=== PATIENT | female | born 1985 | race Caucasian/White ===

== ENCOUNTER 2017-01-14 12:59 | Day surgery (SDC) | payer MEDICAID ==
[~2017-01-14 12:59] MED LIST: RINGERS SOLUTION,LACTATED 1,000 ML IV PRN
--- OUTSIDE RECORDS SUMMARY | 2017-01-14 13:03 | XMS REPORT | Continuity of Care Document ---
:1985 Author Organization [facility] ([facility]) Address [place] [address] Phone [phone] Care Team Providers Name Role Phone Unavailable Primary Care Provider Unavailable Source Comments This disclosure is being made pursuant to the Care Everywhere program, applicable federal and state laws, and may not contain all informaitonavailable regarding this patient.[facility] ([facility]) Active Allergies and Adverse Reactions Not on File Current Medications Not on file Active Problems Not on file Social History Tobacco Use Types Packs/Day Years Used Date Never Assessed Plan of Care Health Maintenance Due Date Last Done Comments Hepatitis B Vaccine (1 of 3 - Primary Series) 1984 Tdap Vaccine 1995 Lipid Disorder Screening 2002 MMR Vaccine 2002 Td Vaccine 2002 Varicella Vaccine (1 of 2 - Adult - No Evidence of 2002 Immunity) Cervical Cancer Screening 2014 Influenza Vaccine: Seasonal (#1) 05/14/2016 Results from Last 3 Months Not on file
[2017-01-14] MEDS ORDERED: RINGERS SOLUTION,LACTATED 1,000 ML IV ONE ×2 (14:44→16:00)
[2017-01-14] MEDS ORDERED: BUPIVACAINE HCL/EPINEPHRINE 50 ML VIAL IJ ONE ×2 (15:56)
[2017-01-14] MEDS ORDERED: RINGERS SOLUTION,LACTATED 1,000 ML IV PRN (16:32)
[2017-01-14] MEDS ORDERED: oxyCODONE HCL/ACETAMINOPHEN 1 TAB TABLET PO ONE (16:50)
--- NOTE | 2017-01-14 17:51 | OR ---
Operative Report - Dictated Report Narrative: OPERATIVE REPORT DATE OF OPERATION: 01/14/2017 PREOPERATIVE DIAGNOSIS: Anal pain POSTOPERATIVE DIAGNOSIS: Thrombosed left lateral external hemorrhoid, chronic posterior anal fissure, normal sigmoidoscopy OPERATION: Rectal exam under anesthesia. Sigmoidoscopy. Incision and drainage of thrombosed external hemorrhoid. Left lateral internal sphincterotomy SURGEON: Patty Slaughter MD ANESTHESIA: MAC/general endotracheal Donis Landrum CRNA INDICATIONS FOR PROCEDURE: The patient is a 31-year-old female with 7 month history of anal pain. She has had incomplete relief with conservative measures and is brought for exam under anesthesia FINDINGS: Thrombosed external hemorrhoid in the left lateral position. Chronic posterior anal fissure. Normal sigmoidoscopy to the splenic flexure NARRATIVE OF PROCEDURE: The patient was identified preoperatively and prior to the administration of anesthetic a multidisciplinary timeout was observed. The patient was initially placed in the left lateral position and after the administration of intravenous sedation the perineum was inspected. There was no evidence of pilonidal disease or skin breakdown. The external appearance of the anus was normal with exception of a 0.7 cm thrombosed external hemorrhoid in the left lateral position. Digital rectal exam revealed good sphincter tone with no masses in the rectum. There was induration in the posterior midline compatible with fissure. The flexible fiberoptic sigmoidoscope was inserted into the rectum which was insufflated with air. The rectal mucosa and submucosal vascular pattern appeared normal. The scope was then slowly withdrawn through the anal canal with findings of a posterior fissure. The scope was then advanced proximally through the sigmoid colon, up the descending colon to the splenic flexure. The mucosa to this level appeared normal. The scope was then slowly withdrawn in a circular fashion so that all aspects of colonic mucosa were seen. The mucosa and submucosal vascular pattern appeared normal, specifically there was no evidence to suggest inflammatory bowel disease and no AV malformations were seen. No diverticular openings were identified. The scope was gradually withdrawn to the level of the rectum. As much insufflated air as possible was removed. The scope was withdrawn from the patient and the this portion of the procedure terminated. Gen. endotracheal anesthetic was administered. The patient was then transferred to the prone position with appropriate padding and monitoring. The buttocks were retracted with tape in the anal area was prepped with Betadine and isolated with 4 sterile towels. The remainder the patient was covered with sterile disposable drapes. A bivalve rectal speculum was inserted and the anal canal inspected circumferentially confirming a chronic-appearing posterior anal fissure. A slotted rectal retractor was then placed and rotated to expose the left lateral position. An incision was made over the clotted external hemorrhoid and the clot evacuated. The same incision was used to expose the white fibers of the internal sphincter which was then divided up to the same level as the proximal end of the fissure. The external sphincter was not disturbed. 0.5% Marcaine with epinephrine was then injected for local anesthesia. The wound appeared hemostatic. The incision was approximated with interrupted sutures of 2-0 chromic. The operative procedure was terminated at this point. The patient tolerated the anesthetic and procedure well without complication. All counts were correct. No specimens were submitted. There was no measurable blood loss. She was returned to the supine position without incident. She was transferred to the recovery room awake extubated and in stable condition. The patient remained stable throughout a period of postoperative observation. She denied discomfort, was able to tolerate po intake and was up without assistance. I shared the operative findings with her and her . She was given copies of the photographs which appear in the medical record. She was discharged home with instructions not to engage in hazardous activity today but she may return to normal activity tomorrow and advance diet as tolerated. She may use warm sitz baths as if needed. She was also given a prescription for Percocet 5/325 mg #30 1-2 po Q4-6hrs prn pain. She has phone numbers to call for bleeding or uncontrolled pain. She is to contact the office in the morning to make a follow-up appointment for 7-10 days. Reviewed and electronically signed []
[2017-01-14 18:00] VITALS: BP 110/63
== END 2017-01-14 13:00 | disposition home or self-care (01) ==
LOC: AMB 12:59
PROVIDERS: ATTEND Surgery
PROC: 0D8R0ZZ Division of Anal Sphincter, Open Approach (ICD-10-PCS; 2017-01-14)
PROC: 0DJD8ZZ Inspection of Lower Intestinal Tract, Via Natural or Artificial Opening Endoscopic (ICD-10-PCS; principal; 2017-01-14 15:00)
PROC: 0D9P3ZZ Drainage of Rectum, Percutaneous Approach (ICD-10-PCS; 2017-01-14 15:00)
DX: K64.5 Perianal venous thrombosis (principal); K60.1 Chronic anal fissure; K62.5 Hemorrhage of anus and rectum; K59.00 Constipation, unspecified; F32.9 Major depressive disorder, single episode, unspecified; F17.200 Nicotine dependence, unspecified, uncomplicated; Z68.25 Body mass index [BMI] 25.0-25.9, adult